=== PATIENT | female | born 1945 | race African-American/Black ===

== ENCOUNTER 2017-07-02 21:07 | Emergency (ER) | payer OTHER ==
[~2017-07-02] VITALS: Ht 165.1 cm; Wt 73.5 kg
[~2017-07-02 21:07] MED LIST: ACET-787 PO; CYCL-405 PO; FEXO1TAB12 PO; FLONAS NS; MELA1TAB3 PO; MULT-2410 PO
[2017-07-02 21:20] VITALS: BP 173/73
[2017-07-02] MEDS ORDERED: KETOROLAC 30 MG/ML VIAL IM ONE (23:10)
[2017-07-02] MEDS ORDERED: CYCLOBENZAPRINE 10 MG TAB PO ONE (23:10)
[2017-07-02 23:40] VITALS: BP 146/82
== END 2017-07-02 23:40 | disposition home or self-care (01) ==
LOC: MED 21:07
DX: G89.29 Other chronic pain (principal); M54.5 Low back pain; Z76.1 Encounter for health supervision and care of foundling; Z85.3 Personal history of malignant neoplasm of breast; Z79.899 Other long term (current) drug therapy; Z88.2 Allergy status to sulfonamides; Z88.5 Allergy status to narcotic agent; Z88.8 Allergy status to other drugs, medicaments and biological substances
CPT/HCPCS: 81002; 96372; 99283; J1885